=== PATIENT | male | born 1955 | race Caucasian/White ===

== ENCOUNTER 2018-04-17 07:38 | Inpatient (IN) | payer OTHER ==
[~2018-04-17] VITALS: Ht 160 cm; Wt 63.5 kg
[2018-04-17 07:45] VITALS: BP_SYST 109
[2018-04-17] MEDS ORDERED: GLU850 PO (08:08)
[2018-04-17] MEDS ORDERED: LOP600 PO (08:09)
[2018-04-17] MEDS ORDERED: NACL 0.9% 1,000 ML IV ONE (08:15)
[2018-04-17] MEDS ORDERED: HYDR-1189 PO (08:22)
[2018-04-17] MEDS ORDERED: LIP10 PO (08:22)
[2018-04-17] MEDS ORDERED: CANA100T PO (08:22)
[2018-04-17 08:23] LABS: BASOPHILS # (AUTO) 0.1 K/uL (0.0-0.2); BASOPHILS % (AUTO) 0.3 % (0.0-2.0); EOSINOPHILS # (AUTO) 0.5 K/uL (0.0-0.4); EOSINOPHILS % (AUTO) 2.2 % (0.0-4.0); HEMATOCRIT 37.8 % (36-54); HEMOGLOBIN 12.8 g/dL (14.0-18.0); LYMPHOCYTES # (AUTO) 1.4 K/uL (1.0-5.5); LYMPHOCYTES % (AUTO) 6.6 % (20.5-51.5); MEAN CORPUSCULAR HEMOGLOBIN 29 pg (27-31); MEAN CORPUSCULAR HGB CONC 34 % (32-36); MEAN CORPUSCULAR VOLUME 86 fL (79.0-98.0); MONOCYTES # (AUTO) 2.1 K/uL (0.0-1.0); MONOCYTES % (AUTO) 10.1 % (1.7-9.3); NEUTROPHILS # (AUTO) 16.4 K/uL (1.8-7.7); PLATELET COUNT (AUTO) 478 K/uL (130-430); WHITE BLOOD COUNT (AUTO) 20.5 K/uL (4.8-10.8)
[2018-04-17 08:35] LABS: CREATININE 0.7 mg/dL (0.55-1.30); POTASSIUM 4.3 mmol/L (3.5-5.1)
[2018-04-17 08:38] LABS: CALCIUM 13.2 mg/dL (8.4-11.0)
[2018-04-17 08:39] LABS: INR 1.2 (0.80-1.20); PROTHROMBIN TIME 11.7 SECS (9.5-12.5)
[2018-04-17 08:40] LABS: ALBUMIN 2.1 g/dL (3.4-4.8); TOTAL BILIRUBIN 1.1 mg/dL (0.0-1.0)
[2018-04-17 09:00] LABS: BILIRUBIN,URINE NEGATIVE (NEGATIVE); BLOOD, URINE NEGATIVE (NEGATIVE); CLARITY/URINE SL HAZY (CLEAR); COLOR,URINE YELLOW (YELLOW); GLUCOSE,URINE 1+ (NEGATIVE); KETONES,URINE NEGATIVE (NEGATIVE); LEUKOCYTE ESTERASE ,URINE NEGATIVE (NEGATIVE); NITRITE, URINE NEGATIVE (NEGATIVE); PH,URINE 5.5 (5.0-8.0); PROTEIN URINE TRACE (NEGATIVE); UROBILINOGEN,URINE 0.2 (0.2-1.0)
[2018-04-17 09:13] LABS: NEUTROPHILS % (AUTO) 80.8 % (40.0-70.0)
[2018-04-17] MEDS ORDERED: ONDANSETRON HCL 4 MG/2 ML VIAL IVP PRN ×2 (09:30→09:45)
[2018-04-17] MEDS ORDERED: ACETAMINOPHEN 650 MG/20.3 ML UDC NG PRN ×2 (09:30→09:45)
[2018-04-17] MEDS ORDERED: NACL 0.9% 1,000 ML IV SCH (09:30)
[2018-04-17] MEDS ORDERED: MORPHINE 2 MG/ML INJ. SYRINGE IVP PRN ×2 (09:30→09:45)
[2018-04-17 09:42] LABS: BACTERIA,URINE RARE /HPF (None Seen); MUCUS,URINE 1+ /LPF (None Seen); RBC,URINE 0-3 /HPF (0-3); WBC,URINE 0-3 /HPF (0-3)
[2018-04-17] MEDS ORDERED: INSULIN ASPART 100 UNITS/ML, 10 ML VIAL (NovoLOG) SUBCUT PRN ×2 (09:45→15:45)
[2018-04-17] MEDS ORDERED: PANTOPRAZOLE SODIUM 40 MG/VIAL (PROTONIX) IVP ONE (10:00)
[2018-04-17] MEDS ORDERED: THIAMINE HCL 100 MG TABLET PO ONE (10:00)
[2018-04-17] MEDS ORDERED: DOCUSATE SODIUM 100 MG CAPSULE PO ONE (10:00)
[2018-04-17] MEDS ORDERED: LACTULOSE 20 GM/30 ML UDC PO ONE (10:00)
[2018-04-17] MEDS ORDERED: FOLIC ACID 1 MG TABLET PO ONE (10:00)
[2018-04-17 10:05] LABS: CHOLESTEROL 75 mg/dL (<200); HDL CHOLESTEROL 27 mg/dL (>45); LDL CHOLESTEROL 33 mg/dL (<100); TRIGLYCERIDES 89 mg/dL (30-150)
[2018-04-17] MEDS ORDERED: PIPERACILLIN/TAZO 3.375/DEX-IS 50 ML IV SCH (12:00)
[2018-04-17] MEDS: PIPERACILLIN/TAZO 3.375/DEX-IS 50 ML IV SCH ×2 (12:08→17:09)
[2018-04-17] MEDS: NACL 0.9% 1,000 ML IV SCH ×2 (12:08→19:45)
[2018-04-17 14:49] VITALS: BP_SYST 109
[2018-04-17 17:58] VITALS: BP_SYST 104
[2018-04-17 19:00] VITALS: BP_SYST 106
[2018-04-17 20:00] VITALS: BP_SYST 106
[2018-04-17] MEDS: DOCUSATE SODIUM 100 MG CAPSULE PO SCH (20:20)
[2018-04-17] MEDS ORDERED: PAMIDRONATE DISODIUM 30 MG in NS 500 ML IV SCH (21:00)
[2018-04-17] MEDS ORDERED: DOCUSATE SODIUM 100 MG CAPSULE PO SCH (21:00)
[2018-04-17] MEDS: D5/0.45 NS 1,000 ML IV SCH (21:20)
[2018-04-17] MEDS: HYDROcodone/ACETAMIN 5-325 MG TAB (NORCO/ VICODIN) PO PRN (21:40)
[2018-04-18] VITALS: BP_SYST 110
[2018-04-18] MEDS: PIPERACILLIN/TAZO 3.375/DEX-IS 50 ML IV SCH ×4 (00:42→17:36)
[2018-04-18] MEDS: D5/0.45 NS 1,000 ML IV SCH ×2 (06:58→17:00)
[2018-04-18 07:31] LABS: BASOPHILS # (AUTO) 0.1 K/uL (0.0-0.2); BASOPHILS % (AUTO) 0.6 % (0.0-2.0); EOSINOPHILS # (AUTO) 0.4 K/uL (0.0-0.4); EOSINOPHILS % (AUTO) 2.3 % (0.0-4.0); HEMOGLOBIN 12.2 g/dL (14.0-18.0); LYMPHOCYTES # (AUTO) 1.2 K/uL (1.0-5.5); LYMPHOCYTES % (AUTO) 6.9 % (20.5-51.5); MEAN CORPUSCULAR HEMOGLOBIN 29 pg (27-31); MEAN CORPUSCULAR HGB CONC 33 % (32-36); MEAN CORPUSCULAR VOLUME 87 fL (79.0-98.0); MONOCYTES # (AUTO) 1.8 K/uL (0.0-1.0); MONOCYTES % (AUTO) 10.2 % (1.7-9.3); NEUTROPHILS # (AUTO) 14.3 K/uL (1.8-7.7); PLATELET COUNT (AUTO) 460 K/uL (130-430); RED BLOOD CELL COUNT(AUTO) 4.28 MIL/uL (4.2-6.2); RED CELL DISTRIBUTION WIDTH 15.1 % (9.0-15.0); WHITE BLOOD COUNT (AUTO) 17.8 K/uL (4.8-10.8)
[2018-04-18 07:55] LABS: CALCIUM 12.2 mg/dL (8.4-11.0); CREATININE 0.69 mg/dL (0.55-1.30); POTASSIUM 4.2 mmol/L (3.5-5.1)
[2018-04-18 07:59] LABS: ALBUMIN 1.7 g/dL (3.4-4.8); PHOSPHORUS 2.3 mg/dL (2.7-4.5)
[2018-04-18 08:03] VITALS: BP_SYST 105
[2018-04-18] MEDS: HYDROcodone/ACETAMIN 5-325 MG TAB (NORCO/ VICODIN) PO PRN ×3 (08:06→18:25)
[2018-04-18] MEDS: THIAMINE HCL 100 MG TABLET PO SCH (08:07)
[2018-04-18] MEDS: LACTULOSE 20 GM/30 ML UDC PO SCH (08:07)
[2018-04-18] MEDS: PANTOPRAZOLE SODIUM 40 MG/VIAL (PROTONIX) IVP SCH (08:07)
[2018-04-18] MEDS: FOLIC ACID 1 MG TABLET PO SCH (08:07)
[2018-04-18] MEDS ORDERED: LACTULOSE 20 GM/30 ML UDC PO SCH (09:00)
[2018-04-18] MEDS ORDERED: PANTOPRAZOLE SODIUM 40 MG/VIAL (PROTONIX) IVP SCH (09:00)
[2018-04-18] MEDS ORDERED: PAMIDRONATE DISODIUM 30 MG in NS 500 ML IV ONE (09:00)
[2018-04-18] MEDS ORDERED: THIAMINE HCL 100 MG TABLET PO SCH (09:00)
[2018-04-18] MEDS ORDERED: FOLIC ACID 1 MG TABLET PO SCH (09:00)
[2018-04-18] MEDS: DOCUSATE SODIUM 100 MG CAPSULE PO SCH ×2 (09:46→21:22)
[2018-04-18 11:31] VITALS: BP_SYST 97
[2018-04-18 15:33] VITALS: BP_SYST 105
[2018-04-18 20:00] VITALS: BP_SYST 96
[2018-04-18] MEDS: RIFAXIMIN 550 MG TABLET PO SCH (21:22)
[2018-04-19] MEDS: PIPERACILLIN/TAZO 3.375/DEX-IS 50 ML IV SCH ×4 (00:32→17:35)
[2018-04-19 00:40] VITALS: BP_SYST 99
[2018-04-19] MEDS: D5/0.45 NS 1,000 ML IV SCH ×2 (02:54→13:24)
[2018-04-19 08:20] VITALS: BP_SYST 99
[2018-04-19] MEDS ORDERED: NACL 0.9% IV ONE (08:30)
[2018-04-19] MEDS ORDERED: PAMIDRONATE DISODIUM IV ONE ×2 (08:30→09:39)
[2018-04-19] MEDS: RIFAXIMIN 550 MG TABLET PO SCH ×2 (08:31→21:00)
[2018-04-19] MEDS: FOLIC ACID 1 MG TABLET PO SCH (08:31)
[2018-04-19] MEDS: LACTULOSE 20 GM/30 ML UDC PO SCH (08:31)
[2018-04-19] MEDS: PANTOPRAZOLE SODIUM 40 MG/VIAL (PROTONIX) IVP SCH (08:31)
[2018-04-19] MEDS: DOCUSATE SODIUM 100 MG CAPSULE PO SCH ×2 (08:31→21:00)
[2018-04-19] MEDS: THIAMINE HCL 100 MG TABLET PO SCH (08:31)
[2018-04-19] MEDS ORDERED: NS IV ONE (09:39)
[2018-04-19 11:28] LABS: CREATININE 0.63 mg/dL (0.55-1.30)
[2018-04-19 11:33] LABS: ALBUMIN 1.8 g/dL (3.4-4.8); TOTAL BILIRUBIN 0.9 mg/dL (0.0-1.0)
[2018-04-19 11:42] VITALS: BP_SYST 107
[2018-04-19 11:45] LABS: HEMATOCRIT 37.1 % (36-54); HEMOGLOBIN 11.9 g/dL (14.0-18.0); MEAN CORPUSCULAR HEMOGLOBIN 28 pg (27-31); MEAN CORPUSCULAR HGB CONC 32 % (32-36); MEAN CORPUSCULAR VOLUME 87 fL (79.0-98.0); PLATELET COUNT (AUTO) 479 K/uL (130-430); RED BLOOD CELL COUNT(AUTO) 4.26 MIL/uL (4.2-6.2); RED CELL DISTRIBUTION WIDTH 14.9 % (9.0-15.0)
[2018-04-19 11:53] LABS: WHITE BLOOD COUNT (AUTO) 18.5 K/uL (4.8-10.8)
[2018-04-19 12:07] LABS: ATYPICAL LYMPHOCYTES % 0 % (0-0); BAND % (MANUAL) 3 % (0-6); BASOPHILS % (MANUAL) 0 % (0-2); EOSINOPHILS % (MANUAL) 3 % (0-7); LYMPHOCYTES % (MANUAL) 4 % (20-46); MONOCYTES % (MANUAL) 4 % (0-11)
[2018-04-19] MEDS: HYDROcodone/ACETAMIN 5-325 MG TAB (NORCO/ VICODIN) PO PRN (13:23)
[2018-04-19 20:30] VITALS: BP_SYST 135
[2018-04-19] MEDS ORDERED: DIPHENHYDRAMINE INJ 50 MG/ML VIAL IVP ONE (23:00)
[2018-04-20] VITALS: BP_SYST 96
[2018-04-20] MEDS: PIPERACILLIN/TAZO 3.375/DEX-IS 50 ML IV SCH ×4 (00:18→18:00)
[2018-04-20] MEDS: D5/0.45 NS 1,000 ML IV SCH ×2 (06:32→08:53)
[2018-04-20] MEDS: PANTOPRAZOLE SODIUM 40 MG/VIAL (PROTONIX) IVP SCH (08:52)
[2018-04-20] MEDS: LACTULOSE 20 GM/30 ML UDC PO SCH (08:52)
[2018-04-20] MEDS: RIFAXIMIN 550 MG TABLET PO SCH (08:52)
[2018-04-20] MEDS: THIAMINE HCL 100 MG TABLET PO SCH (08:53)
[2018-04-20] MEDS: FOLIC ACID 1 MG TABLET PO SCH (08:53)
[2018-04-20] MEDS: DOCUSATE SODIUM 100 MG CAPSULE PO SCH (08:53)
[2018-04-20] MEDS: HYDROcodone/ACETAMIN 5-325 MG TAB (NORCO/ VICODIN) PO PRN (15:04)
[2018-04-20 15:09] VITALS: BP_SYST 105
== END 2018-04-20 19:20 | disposition hospice, home (50) | DRG 432 ==
LOC: SED 07:38 → STU 09:25 → SED 09:25 → STU 09:28
PROVIDERS: ADMIT Internal Medicine Hospice and Palliative Medicine; ATTEND Internal Medicine Hospice and Palliative Medicine
DX: K74.60 Unspecified cirrhosis of liver (principal); G93.41 Metabolic encephalopathy; C22.0 Liver cell carcinoma; E87.1 Hypo-osmolality and hyponatremia; R18.8 Other ascites; Z66 Do not resuscitate; E11.9 Type 2 diabetes mellitus without complications; F17.210 Nicotine dependence, cigarettes, uncomplicated; E78.5 Hyperlipidemia, unspecified; E83.52 Hypercalcemia; F10.11 Alcohol abuse, in remission; R63.4 Abnormal weight loss; Z79.899 Other long term (current) drug therapy; Z90.49 Acquired absence of other specified parts of digestive tract; Z68.24 Body mass index [BMI] 24.0-24.9, adult; Z85.038 Personal history of other malignant neoplasm of large intestine
CPT/HCPCS: 36415; 70450-TC; 71045; 71250-TC; 76700-TC; 78306; 80053; 80061; 81000-TC; 82105; 82140-TC; 82378; 82962; 83036; 83605; 83880; 83970; 84100-TC; 84443-TC; 84484; 85007; 85025; 85027; 85610-TC; 85730-TC; 87040-TC; 87086; 92610-GN; 93005; 96360; 97116-GP; 97530-GP; 99285; A9503; C9113; J1200; J1815; J2270; J2430; J2543; J7030; J7040